=== PATIENT | male | born 1990 | race Caucasian/White ===

== ENCOUNTER → 2018-02-11 | Outpatient (REF) | payer OTHER | LOC: M LAB REF 14:38 | DX: D23.39 Other benign neoplasm of skin of other parts of face (principal) | CPT/HCPCS: 88304 ==

== ENCOUNTER → 2018-03-13 | Outpatient (REF) | payer OTHER | LOC: M LAB REF 14:10 | PROVIDERS: ATTEND Surgery | DX: D21.0 Benign neoplasm of connective and other soft tissue of head, face and neck (principal) ==

== ENCOUNTER → 2018-06-13 | Outpatient (CLI) | payer OTHER ==
[~2018-06-13] MED LIST: PROHANCE 279.3MG/ML 15ML VIAL (A9576) As Ordered ONE; PROHANCE 279.3MG/ML 5ML VIAL (A9576) As Ordered ONE
--- NOTE | 2018-06-13 19:33 | REP ---
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 On February 11, the patient had a cyst removed from the right jew with pathology showing features of a dermoid cyst. 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 The patient reports drainage from the site on the right. Technique: Axial and sagittal imaging planes are utilized for T1 and T2-weighted scans. Sequences include spin-echo, fast spin echo, FLAIR, and diffusion weighted sequences. Gadolinium enhancement dose is 19 ml of intravenous ProHance. MRI findings: There is a linear area of skin and scalp induration in the right temporal region. This measures 18 mm in anteroposterior dimension. The underlying subcutaneous fat and temporalis muscle show some swelling and contrast enhancement. No evidence of fluid collection or gale abscess. 2.3 cm inferior to this, there is a right temporal lesion. This is characterized by T1 and T2 hyperintensity with inhomogeneous contents and well-circumscribed margins. It measures 13 x 13 x 11 mm in diameter. There is thinning of the inner table and remodeling of the outer table of the skull at the level of this lesion which projects into the extra-axial compartment at the level of the sylvian fissure. It is difficult to determine by MRI but this appears to be a bone lesion. It is 2 cm directly caudad from the scalp lesion. No other bone lesion is seen. No intra-axial mass is seen. Lateral, third, and fourth ventricles are normal in size and position. No other scalp lesion is seen. No other calvarial defect is observed. No intraorbital abnormality is seen. The visualized paranasal sinuses are clear. Craniocervical junction and upper cervical cord are normal in appearance. No abnormal intracranial enhancement is seen. It is impossible to tell whether the right temporal bone lesion enhances because it T1 hyperintense. No definite abnormal enhancement is seen. Impression: There is a 13 mm T1 and T2 hyperintense right temporal bone scalp lesion 2 cm caudad to the area of induration and enhancement in the right scalp which presumably represents the recent scalp excision. T1 hyperintense signal suggests a dermoid cyst. Recommend brain CT since CT shows bone detail better. I believe this is a temporal bone calvarial lesion rather than an intracranial process. Electronically Signed by Jonny Galindo MD 06/13/2018 08:17 P
== END ==
LOC: M RAD 17:17
PROVIDERS: ATTEND Surgery
DX: D48.1 Neoplasm of uncertain behavior of connective and other soft tissue (principal)
CPT/HCPCS: 70553; A9576